=== PATIENT | male | born 1955 | race Caucasian/White ===

== ENCOUNTER 2023-08-25 10:46 | Inpatient (IN) | payer OTHER ==
[2023-08-25 11:20] VITALS: BMI 23.7
[2023-08-25 12:53] LABS: EPI CELLS 2 /uL (0-25.1); HYALINE CASTS 1 /uL (0-3.1); URINE APPEARANCE CLEAR; URINE BACTERIA 7 /uL (0-1359); URINE BILIRUBIN NEGATIVE (NEGATIVE); URINE COLOR YELLOW; URINE GLUCOSE (UA) NEGATIVE (NEGATIVE); URINE KETONE 1+ (NEGATIVE); URINE LEUK ESTERASE NEGATIVE (NEGATIVE); URINE NITRITE NEGATIVE (NEGATIVE); URINE PROTEIN 2+ (NEGATIVE); URINE RBC 12 /uL (0-23.9); URINE WBC 7 /uL (0-25.8)
[2023-08-25] MEDS: LORazepam 2 MG/ML SDV VIAL IVPUSH ONE (13:54)
[2023-08-25 14:05] LABS: INR 1.05 (0.83-1.09); PROTHROMBIN TIME (PATIENT) 11.9 SEC (9.7-13.0)
[2023-08-25 14:08] LABS: BASO % 0.2 % (0-2.0); EOS % 0.3 % (0-4.5); HEMATOCRIT 36.3 % (35.4-49); HEMOGLOBIN 12.4 GM/dL (11.7-16.9); LYMPH % 7.8 % (8-40); MCH 29.2 pg (25.7-33.7); MCHC 34.2 g/dl (32.0-35.9); MEAN CELL VOLUME 85.3 fl (80-96); MEAN PLT VOLUME 8.1 fl (7.5-11.1); MONO % 6.8 % (3.8-10.2); NEUT % 84.9 % (42.8-82.8); PLATELET COUNT 303 10^3/uL (134-434); RBC 4.26 M/mm3 (4.00-5.60); RDW 15.4 % (11.9-15.9); WHITE BLOOD COUNT 13.8 K/mm3 (4.0-10.0)
[2023-08-25 14:39] LABS: CALCIUM 9.5 mg/dL (8.5-10.1)
[2023-08-25 14:40] LABS: BLOOD UREA NITROGEN 33.3 mg/dL (7-18)
[2023-08-25 14:43] LABS: CREATININE 1.2 mg/dL (0.55-1.3)
[2023-08-25 14:44] LABS: TOT PROT 7.7 g/dl (6.4-8.2)
[2023-08-25 14:45] LABS: BILIRUBIN,TOTAL 0.5 mg/dL (0.2-1)
[2023-08-25] MEDS: LACTATED RINGERS SOLUTION 1000 ML INFUS.BAG IV ONE (19:24)
[2023-08-25] MEDS ORDERED: POTASSIUM CHLORIDE TABS 20 MEQ TABLET.ER (FP) PO ONE (21:30)
[2023-08-25] MEDS: POTASSIUM CHLORIDE TABS 20 MEQ TABLET.ER (FP) PO ONE (21:35)
[2023-08-25] MEDS: SODIUM CHLORIDE 1,000 ML IV SCH (21:41)
[2023-08-25 23:11] LABS: MAGNESIUM 2.6 mg/dL (1.8-2.4)
[2023-08-26] MEDS: KCL 10 MEQ IVPB 10 MEQ/100 ML INFUS.BAG IVPB SCH (00:27)
[2023-08-26 02:02] LABS: OPIATES, URI NEGATIVE (NEGATIVE); URINE BARBITURATES NEGATIVE (NEGATIVE)
[2023-08-26 02:03] LABS: METHADONE, UR NEGATIVE (NEGATIVE); PHENCYCLIDINE,URINE NEGATIVE (NEGATIVE); URINE AMPHETAMINES NEGATIVE (NEGATIVE); URINE BENZODIAZEPINES NEGATIVE (NEGATIVE)
[2023-08-26 02:19] LABS: COCAINE, UR POSITIVE (NEGATIVE)
[2023-08-26] MEDS: POTASSIUM PHOSPHATE 30 MM in SODIUM CHLORIDE 500 ML IVPB ONE (02:20)
[2023-08-26 10:03] LABS: BASO % 0.5 % (0-2.0); EOS % 2.3 % (0-4.5); HEMATOCRIT 33.5 % (35.4-49); HEMOGLOBIN 11.4 GM/dL (11.7-16.9); LYMPH % 15.4 % (8-40); MCH 28.8 pg (25.7-33.7); MCHC 33.9 g/dl (32.0-35.9); MEAN CELL VOLUME 84.8 fl (80-96); MEAN PLT VOLUME 7.7 fl (7.5-11.1); MONO % 6.5 % (3.8-10.2); NEUT % 75.3 % (42.8-82.8); PLATELET COUNT 294 10^3/uL (134-434); RBC 3.95 M/mm3 (4.00-5.60); RDW 15.1 % (11.9-15.9); WHITE BLOOD COUNT 10.4 K/mm3 (4.0-10.0)
[2023-08-26 10:22] LABS: POTASSIUM 3.4 mmol/L (3.5-5.1)
[2023-08-26 10:26] LABS: BLOOD UREA NITROGEN 20.8 mg/dL (7-18); CALCIUM 8.9 mg/dL (8.5-10.1); MAGNESIUM 2.2 mg/dL (1.8-2.4)
[2023-08-26] MEDS: ENOXAPARIN NA (PORCINE) 40 MG/0.4 ML DISP.SYRIN SQ SCH (10:28)
[2023-08-26 10:29] LABS: CREATININE 1.1 mg/dL (0.55-1.3); PHOSPHOROUS 1.7 mg/dL (2.5-4.9)
[2023-08-26 10:30] LABS: BILIRUBIN,TOTAL 0.4 mg/dL (0.2-1)
[2023-08-26 10:31] LABS: TOT PROT 6.4 g/dl (6.4-8.2)
[2023-08-26] MEDS: FOLIC ACID 1 MG TABLET (FP) PO SCH (10:31)
[2023-08-26] MEDS: lamoTRIgine 100 MG TABLET PO SCH (10:31)
[2023-08-26] MEDS: DULoxetine HCL 30 MG CAPSULE.DR PO SCH (10:31)
[2023-08-26] MEDS: ASPIRIN COATED 81 MG TABLET.EC PO SCH (10:31)
[2023-08-26] MEDS: amLODIPine BESYLATE 10 MG TABLET (FP) PO SCH (10:31)
[2023-08-26] MEDS: PERPHENAZINE 4 MG TABLET PO SCH (10:33)
[2023-08-26] MEDS: NICOTINE 21 MG/24 HOURS TOPICAL PATCH TD SCH (10:44)
[2023-08-26 10:53] LABS: ALBUMIN 3.1 g/dl (3.4-5.0)
[2023-08-26] MEDS: NAPH,MB-DB/K PH,MBDB POWDER PACKET PO ONE (12:59)
[2023-08-26] MEDS: POTASSIUM CHLORIDE ORAL LIQUID 20 MEQ/15 ML PO ONE (13:00)
[2023-08-26] MEDS: hydrALAZINE HCL 25 MG TABLET (FP) PO SCH (13:52)
[2023-08-26] MEDS: ATORVASTATIN CA 40 MG TABLET (FP) PO SCH (21:40)
[2023-08-26] MEDS: MELATONIN 5 MG TABLETS PO ONE (23:03)
[2023-08-27 09:04] LABS: CALCIUM 9.3 mg/dL (8.5-10.1)
[2023-08-27 09:05] LABS: BLOOD UREA NITROGEN 11.1 mg/dL (7-18)
[2023-08-27 09:08] LABS: PHOSPHOROUS 2.9 mg/dL (2.5-4.9)
[2023-08-27] MEDS ORDERED: SODIUM CHLORIDE NASAL SPRAY 44 ML BOTTLE NS PRN (10:43)
[2023-08-27] MEDS: LIDOCAINE 4% PATCH TP ONE (10:51)
[2023-08-27] MEDS: NYSTATIN 500,000 UNITS/5 ML SUSPENSION PO SCH (12:23)
[2023-08-27] MEDS: LIDOCAINE PATCH REMOVAL MC SCH (21:41)
[2023-08-28] MEDS: LIDOCAINE 5% TOPICAL PATCH TP SCH (11:36)
[2023-08-28] MEDS: LIDOCAINE PATCH REMOVAL MC SCH (22:07)
[2023-08-29 21:37] VITALS: RESP 18
[2023-08-30 07:05] VITALS: TEMP 98.4
[2023-08-30 09:13] VITALS: BP 149/90; PULSE 82
== END 2023-08-30 11:51 | disposition home or self-care (01) | DRG 816 ==
LOC: JER 10:46 → JERBED 20:09 → OBSVTOIN 20:14 → J5S 22:31
PROVIDERS: ADMIT Internal Medicine
DX: T40.5X1A Poisoning by cocaine, accidental (unintentional), initial encounter (principal); G92.8 Other toxic encephalopathy; N17.9 Acute kidney failure, unspecified; B37.0 Candidal stomatitis; E83.39 Other disorders of phosphorus metabolism; E87.1 Hypo-osmolality and hyponatremia; G92.9 Unspecified toxic encephalopathy; Y92.89 Other specified places as the place of occurrence of the external cause; F60.2 Antisocial personality disorder; I10 Essential (primary) hypertension; M10.9 Gout, unspecified; F31.81 Bipolar II disorder; D72.829 Elevated white blood cell count, unspecified; F14.90 Cocaine use, unspecified, uncomplicated; E87.6 Hypokalemia
CPT/HCPCS: 36415; 70450-TC; 80048; 80053; 80178; 80307; 81003; 82140; 82570; 83735; 84100; 84156; 84439; 84443; 84484; 84550; 85025; 85610; 85730; 86850; 86900; 86901; 87086; 93005; 93010; 97116-GP; 97161-GP; 99285-25; G0378